=== PATIENT | female | born 1955 | race Caucasian/White ===

== ENCOUNTER → 2016-10-17 | Day surgery (SDC) | payer OTHER ==
[~2016-10-17] MED LIST: B COMPLEX1 EACH; IRON325 MG; LIPITOR20 MG PO; OS-CAL 500500 MG PO; PAXIL PO; PRESERVISION1 EA DOB; SYNTHROID112 MCG PO; VITAMIN D1000 UNIT
--- NOTE | ~2016-10-17 | OR ---
Unit #: [id number] #: [id number] Patient: MERA LAY [id number] [address] [id number] MR#: [id number] NAME: MERA LAY ROOM: Date of Procedure: 10/17/2016 Admission Date: 10/17/2016 Surgeon: Wesley Segundo M.D. : 1955 Attending Physician: Wesley Segundo M.D. Primary Care Physician: Brianna Bauer Aprn OPERATIVE REPORT PRIMARY CARE PHYSICIAN Brianna Bauer APRN PREOPERATIVE DIAGNOSES The patient presented for colorectal cancer surveillance. She has personal history of colon polyps. PROCEDURES PERFORMED 1. Colonoscopy with biopsy. 2. Colonoscopy with polypectomy. POSTOPERATIVE DIAGNOSES 1. There were 2 sessile polyps, one each in the sigmoid colon and descending colon. These were removed using snare polypectomy. There was a third diminutive polyp in the ascending colon, which was removed using cold biopsy forceps. 2. Rest of examination up to cecum was normal except for scant small diverticula. The quality of the prep was excellent. RECOMMENDATIONS Follow up results of polyp histology and repeat colonoscopy in 5 years. SEDATION USED MAC. DESCRIPTION OF PROCEDURE Following detailed explanation of the potential risks and complications of a colonoscopy, namely perforation, bleeding, and complications related to sedation, the patient was brought to GI lab and laid in the left lateral decubitus position. A digital rectal examination was performed, which was normal. Lubricated tip of the Olympus video colonoscope was inserted through the anus and advanced under direct vision. The scope was advanced and passed up to sigmoid into descending colon. Scant small diverticula were noted in this area. The scope tip was then navigated all the way up to cecum with visualization of the ileocecal valve and the appendiceal orifice. Preparation was excellent with good visualization and photodocumentation was obtained. Successive segments of the colonic mucosa were examined upon withdrawal. A diminutive polyp was noted in the proximal ascending colon. This was removed using cold biopsy forceps. Two additional polyps, one each in the descending and sigmoid colon were also noted. These were removed using snare polypectomy, retrieved and Unit #: [id number] #: [id number] Patient: OLCOTT,MERA sent for histology. No additional polyps noted. Other than the scant diverticula seen in the left side, no other abnormalities noted. The patient did not have any hemorrhoids at anal verge. The scope was then withdrawn. The patient returned to the recovery area. She tolerated the procedure without any postprocedure complications. Dictated by... Dae Vasquez TD: 10/18/2016 01:29 JOB #: [id number] OPERATIVE REPORT Page 1 of 1 X Wesley Segundo MD X PROCEDURE OPERATIVE NOTE
== END | disposition home or self-care (01) ==
LOC: COPS 07:35
DX: Z12.11 Encounter for screening for malignant neoplasm of colon (principal); K63.5 Polyp of colon; K57.30 Diverticulosis of large intestine without perforation or abscess without bleeding; F41.9 Anxiety disorder, unspecified; E03.9 Hypothyroidism, unspecified; E66.9 Obesity, unspecified; Z68.35 Body mass index [BMI] 35.0-35.9, adult; Z86.010 Personal history of colon polyps; Z87.891 Personal history of nicotine dependence; Z79.899 Other long term (current) drug therapy; Z98.51 Tubal ligation status; Z98.890 Other specified postprocedural states
CPT/HCPCS: 88305; J2250